=== PATIENT | male | born 1990 | race Caucasian/White ===

== ENCOUNTER 2024-03-28 15:44 | Emergency (ER) | payer MEDICAID ==
[~2024-03-28] VITALS: Ht 188 cm; Wt 160.0 kg
[2024-03-28 16:00] VITALS: O2SAT 96
[2024-03-28 16:53] LABS: CLARITY URINE CLEAR (CLEAR); COLOR URINE YELLOW (YELLOW); GLUCOSE URINE NEGATIVE (NEGATIVE); KETONES URINE NEGATIVE (NEGATIVE); LEUKOCYTE ESTERASE URINE NEGATIVE (NEGATIVE); NITRITE URINE NEGATIVE (NEGATIVE); OCCULT BLOOD URINE NEGATIVE (NEGATIVE); PH URINE 5.5 (4.5-8.0); PROTEIN URINE NEGATIVE (NEGATIVE); SPECIFIC GRAVITY URINE 1.026 (1.005-1.030); UROBILINOGEN URINE 0.2 E.U./dL (0.2-1.0)
[2024-03-28 17:00] LABS: BASOPHILS % 0.6 % (0.0-2.0); EOSINOPHILS % 4.3 % (0.0-5.0); HEMATOCRIT. 47.7 % (42.0-52.0); HEMOGLOBIN. 16.5 g/dL (14.0-18.0); LYMPHOCYTES % 29.6 % (20.0-50.0); MEAN CORPUSCULAR HEMOGLOBIN 29.2 pg (28.0-32.0); MEAN CORPUSCULAR HGB CONC 34.5 g/dL (31.0-37.0); MEAN CORPUSCULAR VOLUME 84.5 fL (80.0-94.0); MEAN PLATELET VOLUME 8.7 fl (7.4-10.4); MONOCYTES % 11.2 % (2.0-8.0); NEUTROPHILS % 54.3 % (40.0-76.0); PLATELET 295 x1000/uL (130-400); RED BLOOD CELL COUNT 5.65 mill/uL (4.7-6.1); RED CELL DISTRIBUTION WIDTH 12.9 % (11.6-14.6); WHITE BLOOD COUNT 7.7 x1000/uL (4.5-11.0)
[2024-03-28 17:07] LABS: CHLORIDE 107 mEq/L (98-107); SODIUM 138 mEq/L (136-145)
[2024-03-28 17:08] LABS: CARBON DIOXIDE 25 mEq/L (21-32)
[2024-03-28 17:09] LABS: CALCIUM 9.9 mg/dL (8.7-10.4)
[2024-03-28 17:13] LABS: GLUCOSE 96 mg/dL (70-105); UREA NITROGEN BLOOD 16 mg/dL (9-23)
[2024-03-28 17:14] LABS: TROPONIN I HIGH SENSITIVITY < 4 ng/L (3.0-53)
[2024-03-28] MEDS ORDERED: ALBU6.7H15 INH (17:59)
[2024-03-28 18:43] VITALS: BP 150/87; PULSE 75; RESP 12; TEMP 98.3
== END 2024-03-28 18:44 | disposition home or self-care (01) ==
LOC: ER 15:44
DX: B34.9 Viral infection, unspecified (principal); J45.909 Unspecified asthma, uncomplicated
CPT/HCPCS: 36415; 71045; 80048; 81003; 82962; 84484; 85025; 93005; 99285

== ENCOUNTER 2024-06-28 12:53 | Emergency (ER) | payer MEDICAID ==
[~2024-06-28] VITALS: Ht 188 cm; Wt 154.2 kg
[~2024-06-28 12:53] MED LIST: ALBU6.7H15 INH
[2024-06-28 13:07] VITALS: O2SAT 96
[2024-06-28] MEDS: DIPHENHYDRAMINE 50MG/ML VIAL IM ONE (14:20)
[2024-06-28] MEDS: KETOROLAC 15MG/ML VIAL IM ONE (14:20)
[2024-06-28] MEDS: METOCLOPRAMIDE HCL 10MG/2ML VIAL IM ONE (14:20)
[2024-06-28 15:52] VITALS: BP 135/74; PULSE 85; RESP 16; TEMP 98.7
== END 2024-06-28 15:53 | disposition home or self-care (01) ==
LOC: ER 13:03
DX: R51.9 Headache, unspecified (principal); J45.909 Unspecified asthma, uncomplicated
CPT/HCPCS: 99284; 96372; J1200; J1885; J2765